=== PATIENT | female | born 1990 | race Caucasian/White ===

== ENCOUNTER 2018-04-10 10:06 | Observation (INO) | payer BC ==
[~2018-04-10] VITALS: Ht 157.5 cm; Wt 86.9 kg
[2018-04-10 10:56] LABS: Protein, Urine Random <5.0 mg/dL (0.0-11.9); Protein/Creat Ratio, Ur Random Unable to Calculate
--- NOTE | 2018-04-10 11:30 | NUR ---
REPORT FROM ELIUD BEST. PT 38 WEEKS, NON REACTIVE NST IN OFFICE, US JUST FINISHED, BPP 4/10, NO BREATHING, NO TONE. PT PLANED TO DELIVER IN [place], PT PREFERANCE. WANTS TO DO WHAT IS SAFE FOR BABY. WILL AWAIT LABS TO DETERMINE PLAN. PT AWARE OF WHAT WE ARE LOOKING FOR, PT HAS HX IF HELLP WITH LAST .
--- NOTE | 2018-04-10 11:30 | NUR ---
ASSUMED CARE. LAB IN ROOM, HAS POKED PT 3 TIMES, UNABLE TO GET LAB DRAW. RN WILL START IV AND DRAW OFF START.
--- NOTE | 2018-04-10 12:00 | NUR ---
LABS BACK, ALL MOSTLY NORMAL. IN UNIT, GAVE PT 3 OPTIONS: SHIP TO [place], MONITOR AND REPEAT BPP AT 1700, GO AMA, PT CAN GO TO [place] BY HERSELF. PT CHOSE TO STAY FOR FURTHER MONITORING.
[2018-04-10 12:12] LABS: BASOPHILS ABSOLUTE AUTO 0.01 K/mm3 (0.00-0.23); BASOPHILS PERCENT AUTO 0 % (0-2); EOSINOPHILS ABSOLUTE AUTO 0.03 K/mm3 (0.00-0.68); EOSINOPHILS PERCENT AUTO 0 % (0-6); Hematocrit 35.4 % (33.0-51.0); Hemoglobin 11.3 g/dL (11.5-16.0); IMMATURE GRAN PERCENT AUTO 1 % (0-1); LYMPHOCYTES ABSOLUTE AUTO 1.66 K/mm3 (0.84-5.20); LYMPHOCYTES PERCENT AUTO 19 % (21-46); MONOCYTES ABSOLUTE AUTO 0.47 K/mm3 (0.16-1.47); MONOCYTES PERCENT AUTO 5 % (4-13); Mean Corpuscular HGB 28.8 pg (26.0-34.0); Mean Corpuscular HGB Conc 31.9 g/dL (31.5-36.5); Mean Corpuscular Volume 90 fL (80-100); Mean Platelet Volume 10.5 fL (9.1-12.4); NEUTROPHILS ABSOLUTE AUTO 6.59 K/mm3 (1.96-9.15); NEUTROPHILS PERCENT AUTO 75 % (41-73); Platelet Count 217 K/mm3 (150-400); RDW Coefficient Variation 13.7 % (11.7-14.2); RDW Standard Deviation 44.7 fL (35.1-46.3); Red Blood Cell Count 3.93 M/mm3 (3.80-5.20); White Blood Cell Count 8.86 K/mm3 (4.00-11.30)
[2018-04-10 12:22] LABS: Alanine Aminotransfer (ALT/SGP 15 U/L (12-78); Albumin, Blood 2.8 g/dL (3.4-5.0); Albumin/Globulin Ratio 0.7 (0.8-1.8); Alk Phos 148 U/L (50-136); Anion Gap 7 mmol/L (6-16); Aspartate Aminotrans (AST/SGOT 17 U/L (12-37); Bilirubin, Total 0.2 mg/dL (0.1-1.0); Blood Urea Nitrogen 6 mg/dL (8-24); Bun/Creatinine Ratio 8.3 (12.0-20.0); CO2, Blood 23 mmol/L (21-32); Calcium, Blood 8.3 mg/dL (8.5-10.1); Chloride, Blood 109 mmol/L (98-108); Creatinine, Blood 0.73 mg/dL (0.40-1.00); Globulin, Blood 3.8 g/dL (2.2-4.0); Glomerular Filtration Rate >60 (60-); Glucose, Blood 68 mg/dL (70-99); Potassium, Blood 3.8 mmol/L (3.5-5.5); Sodium, Blood 139 mmol/L (136-145); Total Protein, Blood 6.6 g/dL (6.4-8.2)
--- NOTE | 2018-04-10 14:33 | NUR ---
PT WAS SENT OVER FROM MD OFFICE, AWARE OF VISIT.
[2018-04-10] MEDS ORDERED: LABE100 PO (21:23)
[2018-04-10] MEDS ORDERED: TRAZ50 PO (21:24)
[2018-04-10] MEDS ORDERED: PANT20 PO (21:25)
[2018-04-11 05:52] LABS: BASOPHILS ABSOLUTE AUTO 0.01 K/mm3 (0.00-0.23); BASOPHILS PERCENT AUTO 0 % (0-2); EOSINOPHILS ABSOLUTE AUTO 0.06 K/mm3 (0.00-0.68); EOSINOPHILS PERCENT AUTO 1 % (0-6); Hematocrit 33.3 % (33.0-51.0); Hemoglobin 10.5 g/dL (11.5-16.0); IMMATURE GRAN ABSOLUTE AUTO 0.05 K/mm3 (0.00-0.10); IMMATURE GRAN PERCENT AUTO 1 % (0-1); LYMPHOCYTES ABSOLUTE AUTO 2.02 K/mm3 (0.84-5.20); LYMPHOCYTES PERCENT AUTO 27 % (21-46); MONOCYTES PERCENT AUTO 8 % (4-13); Mean Corpuscular HGB 28.8 pg (26.0-34.0); Mean Corpuscular HGB Conc 31.5 g/dL (31.5-36.5); Mean Corpuscular Volume 91 fL (80-100); Mean Platelet Volume 10.6 fL (9.1-12.4); NEUTROPHILS ABSOLUTE AUTO 4.84 K/mm3 (1.96-9.15); NEUTROPHILS PERCENT AUTO 64 % (41-73); NRBC ABSOLUTE 0.02 K/mm3 (0.00-0.02); NRBC Auto 0.3 /100 WBC (0.0-0.2); Platelet Count 217 K/mm3 (150-400); RDW Coefficient Variation 13.7 % (11.7-14.2); Red Blood Cell Count 3.65 M/mm3 (3.80-5.20); White Blood Cell Count 7.58 K/mm3 (4.00-11.30)
[2018-04-11 06:00] LABS: Alanine Aminotransfer (ALT/SGP 15 U/L (12-78); Albumin, Blood 2.4 g/dL (3.4-5.0); Albumin/Globulin Ratio 0.7 (0.8-1.8); Alk Phos 130 U/L (50-136); Anion Gap 8 mmol/L (6-16); Aspartate Aminotrans (AST/SGOT 17 U/L (12-37); Bilirubin, Total 0.3 mg/dL (0.1-1.0); Blood Urea Nitrogen 7 mg/dL (8-24); CO2, Blood 22 mmol/L (21-32); Calcium, Blood 8.2 mg/dL (8.5-10.1); Chloride, Blood 109 mmol/L (98-108); Globulin, Blood 3.4 g/dL (2.2-4.0); Glomerular Filtration Rate >60 (60-); Glucose, Blood 70 mg/dL (70-99); Potassium, Blood 3.9 mmol/L (3.5-5.5); Sodium, Blood 139 mmol/L (136-145); Total Protein, Blood 5.8 g/dL (6.4-8.2)
[2018-04-11 06:16] LABS: Creatinine, Urine Random 64.6 mg/dL (27.00-270.00); Protein/Creat Ratio, Ur Random 0.1
== END 2018-04-11 13:20 | disposition home or self-care (01) ==
LOC: OBS 10:06 → BC 10:06 → OBS 18:35 → BC 18:35
PROVIDERS: ADMIT Obstetrics & Gynecology
DX: O36.8130 Decreased fetal movements, third trimester, not applicable or unspecified (principal); O14.03 Mild to moderate pre-eclampsia, third trimester; O99.89 Other specified diseases and conditions complicating pregnancy, childbirth and the puerperium; R03.0 Elevated blood-pressure reading, without diagnosis of hypertension; Z3A.36 36 weeks gestation of pregnancy
CPT/HCPCS: 36415; 36416; 59025; 76819; 80053; 82570; 84156; 85025; C9113; G0378; J7120

== ENCOUNTER → 2018-04-10 | Outpatient (CLI) | payer BC ==
[~2018-04-10] MED LIST: IBUP800 PO; LABE100 PO; ONDA4 PO; PANT20 PO; Percocet 5-3251 EACH PO; TRAZ50 PO
== END | disposition home or self-care (01) ==
LOC: LAB 11:01 → LAB SHORT 11:01
DX: O09.93 Supervision of high risk pregnancy, unspecified, third trimester (principal); Z3A.36 36 weeks gestation of pregnancy
CPT/HCPCS: 87081; 87653

== ENCOUNTER 2018-04-13 16:24 | Inpatient (IN) | payer BC ==
[~2018-04-13] VITALS: Ht 154.9 cm; Wt 86.0 kg
[~2018-04-13 16:24] MED LIST changes: -IBUP800 PO; -ONDA4 PO; -Percocet 5-3251 EACH PO
[2018-04-13 17:18] LABS: BASOPHILS ABSOLUTE AUTO 0.01 K/mm3 (0.00-0.23); BASOPHILS PERCENT AUTO 0 % (0-2); EOSINOPHILS ABSOLUTE AUTO 0.01 K/mm3 (0.00-0.68); EOSINOPHILS PERCENT AUTO 0 % (0-6); Hematocrit 35.2 % (33.0-51.0); Hemoglobin 11.2 g/dL (11.5-16.0); IMMATURE GRAN ABSOLUTE AUTO 0.06 K/mm3 (0.00-0.10); IMMATURE GRAN PERCENT AUTO 1 % (0-1); LYMPHOCYTES ABSOLUTE AUTO 1.59 K/mm3 (0.84-5.20); LYMPHOCYTES PERCENT AUTO 19 % (21-46); MONOCYTES ABSOLUTE AUTO 0.46 K/mm3 (0.16-1.47); MONOCYTES PERCENT AUTO 5 % (4-13); Mean Corpuscular HGB 28.5 pg (26.0-34.0); Mean Corpuscular HGB Conc 31.8 g/dL (31.5-36.5); Mean Corpuscular Volume 90 fL (80-100); Mean Platelet Volume 10.4 fL (9.1-12.4); NEUTROPHILS ABSOLUTE AUTO 6.33 K/mm3 (1.96-9.15); NEUTROPHILS PERCENT AUTO 75 % (41-73); Platelet Count 212 K/mm3 (150-400); RDW Coefficient Variation 13.7 % (11.7-14.2); RDW Standard Deviation 44.8 fL (35.1-46.3); Red Blood Cell Count 3.93 M/mm3 (3.80-5.20); White Blood Cell Count 8.46 K/mm3 (4.00-11.30)
[2018-04-13 17:32] LABS: Alanine Aminotransfer (ALT/SGP 21 U/L (12-78); Albumin, Blood 2.9 g/dL (3.4-5.0); Albumin/Globulin Ratio 0.8 (0.8-1.8); Alk Phos 143 U/L (50-136); Anion Gap 9 mmol/L (6-16); Aspartate Aminotrans (AST/SGOT 16 U/L (12-37); Bilirubin, Total 0.3 mg/dL (0.1-1.0); Blood Urea Nitrogen 7 mg/dL (8-24); CO2, Blood 21 mmol/L (21-32); Calcium, Blood 8.6 mg/dL (8.5-10.1); Chloride, Blood 107 mmol/L (98-108); Globulin, Blood 3.8 g/dL (2.2-4.0); Glomerular Filtration Rate >60 (60-); Glucose, Blood 61 mg/dL (70-99); Potassium, Blood 3.8 mmol/L (3.5-5.5); Sodium, Blood 137 mmol/L (136-145); Total Protein, Blood 6.7 g/dL (6.4-8.2)
--- NOTE | 2018-04-13 18:28 | NUR ---
04/13/18 182 Silke Lucero 1816 DELIVERY VIABLE FEMALE INFANT WEIGHT 5# 13 OZ, HEAD 13..5, CHEST 12, LENGTH 19.5 INCHES, APGARS 7/7, UMBILICAL CORD SEGMENT COLLECTED GIVEN TO RT FOR CORD GASES, UMBILICAL CORD BLOOD COLLECTED GIVEN TO Good OROZCO RN,
[2018-04-13 18:37] LABS: PCO2 Cord - Arterial 47.5 mmHg (40-50); PO2 Cord - Arterial 14.3 mmHg (16-20); pH Cord - Arterial 7.34 (7.28-7.35)
[2018-04-13 18:38] LABS: PCO2 Cord - Venous 41.1 mmHg (40-50); PO2 Cord - Venous 23.7 mmHg (28-32); pH Umbilical Cord - Venous 7.36 (7.26-7.35)
--- NOTE | 2018-04-13 19:00 | NUR ---
REPORT TO JEREMY YAN RN
[2018-04-14 05:58] LABS: Hematocrit 30.8 % (33.0-51.0); Hemoglobin 9.9 g/dL (11.5-16.0); Mean Corpuscular HGB 28.2 pg (26.0-34.0); Mean Corpuscular HGB Conc 32.1 g/dL (31.5-36.5); Mean Corpuscular Volume 88 fL (80-100); Mean Platelet Volume 10.9 fL (9.1-12.4); Platelet Count 205 K/mm3 (150-400); RDW Coefficient Variation 13.6 % (11.7-14.2); RDW Standard Deviation 43.8 fL (35.1-46.3); Red Blood Cell Count 3.51 M/mm3 (3.80-5.20); White Blood Cell Count 12.45 K/mm3 (4.00-11.30)
--- NOTE | 2018-04-14 17:32 | NUR ---
pt states she was feeling "high" earlier from percocet and now states she just feels lightheaded. bp elevated not time for labatolol asked family and friends who had been in room all day to leave for awhile and let her rest. pt now sleeping bp back down and pt states feeling better now
[2018-04-15 05:51] LABS: BASOPHILS ABSOLUTE AUTO 0.01 K/mm3 (0.00-0.23); BASOPHILS PERCENT AUTO 0 % (0-2); EOSINOPHILS ABSOLUTE AUTO 0.02 K/mm3 (0.00-0.68); EOSINOPHILS PERCENT AUTO 0 % (0-6); Hematocrit 30.4 % (33.0-51.0); Hemoglobin 9.6 g/dL (11.5-16.0); IMMATURE GRAN ABSOLUTE AUTO 0.08 K/mm3 (0.00-0.10); IMMATURE GRAN PERCENT AUTO 1 % (0-1); LYMPHOCYTES ABSOLUTE AUTO 2.18 K/mm3 (0.84-5.20); LYMPHOCYTES PERCENT AUTO 25 % (21-46); MONOCYTES ABSOLUTE AUTO 0.51 K/mm3 (0.16-1.47); MONOCYTES PERCENT AUTO 6 % (4-13); Mean Corpuscular HGB 28.7 pg (26.0-34.0); Mean Corpuscular HGB Conc 31.6 g/dL (31.5-36.5); Mean Corpuscular Volume 91 fL (80-100); Mean Platelet Volume 10.1 fL (9.1-12.4); NEUTROPHILS PERCENT AUTO 68 % (41-73); Platelet Count 173 K/mm3 (150-400); RDW Coefficient Variation 14.2 % (11.7-14.2); RDW Standard Deviation 47.1 fL (35.1-46.3); Red Blood Cell Count 3.35 M/mm3 (3.80-5.20)
[2018-04-15 06:17] LABS: Alanine Aminotransfer (ALT/SGP 14 U/L (12-78); Albumin, Blood 2.4 g/dL (3.4-5.0); Albumin/Globulin Ratio 0.7 (0.8-1.8); Alk Phos 103 U/L (50-136); Anion Gap 7 mmol/L (6-16); Aspartate Aminotrans (AST/SGOT 14 U/L (12-37); Bilirubin, Total 0.2 mg/dL (0.1-1.0); Blood Urea Nitrogen 8 mg/dL (8-24); Bun/Creatinine Ratio 11.2 (12.0-20.0); CO2, Blood 25 mmol/L (21-32); Calcium, Blood 7.9 mg/dL (8.5-10.1); Chloride, Blood 108 mmol/L (98-108); Creatinine, Blood 0.72 mg/dL (0.40-1.00); Globulin, Blood 3.3 g/dL (2.2-4.0); Glomerular Filtration Rate >60 (60-); Glucose, Blood 71 mg/dL (70-99); Potassium, Blood 3.6 mmol/L (3.5-5.5); Sodium, Blood 140 mmol/L (136-145); Total Protein, Blood 5.7 g/dL (6.4-8.2)
--- NOTE | 2018-04-15 09:15 | NUR ---
Pt c/o continuing nausea w/no relief with earlier zofran dose. MD notified and will give additional dose. Pt is getting up to shower to see if it makes her feel better. She is also complaining of hot/cold flashes and "black outs". VSS, labs stable. Pt will call when out of shower for assitance w/binder and pain medication.
--- NOTE | 2018-04-15 10:15 | NUR ---
Pt out of shower, back in bed lying right lateral. Pt states "I feel 10 times worse than I did before". States nausea is unresolved and she is continuing to have black out periods. RN inquired if pt remembered receiving earlier stool softener or being in the shower and pt states she does remember. When asked if this has ever happened to her before she states "only when I was in the hospital before" "I don't remember even seeing my baby today" "he (SO) thinks I'm just tired". RN agreed that it could be exhaustion. Pt declined pain medication and phenegran at this time. Will call when awake or for other needs.
--- NOTE | 2018-04-15 11:33 | NUR ---
Pt sleeping soundly, did not wake when RN entered room.
--- NOTE | 2018-04-15 12:30 | NUR ---
Pt sleeping soundly, SO denies needs at this time.
[2018-04-15] MEDS ORDERED: Percocet 5-3251 EACH PO (14:24)
[2018-04-15] MEDS ORDERED: ONDA4 PO (14:24)
[2018-04-15] MEDS ORDERED: IBUP800 PO (14:24)
--- NOTE | 2018-04-15 16:15 | NUR ---
Went to pt room to do d/c teaching. Pt is very anxious, explains she feels like she has . Reassured pt she has not , checked vs and bp elevated. pt then became even more anxious that she may be possibly having hellp syndrome again. Explains that she feels like she is in her room, but doesn't really understand that she's in her room. She seems to be having a hard time articulating how she feels. Denies headache, pain, blurry vision or spots in vision. 1+-2+ DTR bilaterally, no clonus. Denies epigastric pain. Will monitor bp then notify .
--- NOTE | 2018-04-15 18:33 | NUR ---
Pt resting in bed w/. Reports she feels less anxious and no longer feels like she's not in the room. Denies other complaints. BP continued to be elevated, labatelol given. Pt made aware that she has prn anxiety medication available and sleeping pill if needed.
--- NOTE | 2018-04-15 22:16 | NUR ---
DISCHARGE ORDERS FOR 04/16/18 PATIENT TO DISCHARGE TOMORROW, PROVIDER AWARE
--- NOTE | 2018-04-16 09:26 | NUR ---
Pt reports having same feelings of anxiety as yesterday. Doesn't remember RN talking about pp mental health this morning or her anxiety. PRN ativan given per request. Pt states "in my head I'm having a hard time putting my two lives together. My life here at the hospital with my baby and my life a home with my son". RN suggested that perhaps it would be a good idea to have son come in again and interact with nb and mother prior to her going home and maybe it would help calm her fears and worries, pt and agreed this is a good idea. Pt also reports that her mother had a history of pp anxiety and the pt herself also had it with her soon and took some antianxiety medications post .
--- NOTE | 2018-04-16 15:36 | NUR ---
CONSULT. FAMILY GETTING READY FOR DISCHARGE HOME. BABY IS 36 WEEK GESTATION. MOM HAS BEEN PUMPING TO BRING MILK SUPPLY IN AND IS NOW PUMPING MORE THAN AN OUNCE. BABY IS CURRENTLY ASLEEP IN HER ARMS. 7% WT LOSS TODAY. PARENTS HAVE BEEN OFFERING SOME FORMULA SUPPLEMENTS. INSTRUCT TO CONTINUE WITH BF, OFFER 10-15CC OF EBM VIA SNS AFTER 5 MINUTES AT BREAST, SO SHE GETS MAXIMUM CALORIES WITH LESS ENERGY USE. MOM FEELS SHE IS LATCHING WELL. HAS PPFU VISIT IN 24 HOURS AND WILL RE EVALUATE HER LATCH AT THAT TIME. DENIES QUESTIONS. MOM SEEMS SOMEWHAT WITHDRAWN, DAD MORE TALKATIVE.
--- NOTE | 2018-04-16 15:45 | NUR ---
No acute changes t/o shift. Pt denies additional questions/concerns. Pt d/c'd home in wheelchair to care of family.
== END 2018-04-16 15:45 | disposition home or self-care (01) | DRG 788 ==
LOC: BC 16:24
PROVIDERS: ADMIT Obstetrics & Gynecology
PROC: 10D00Z1 Extraction of Products of Conception, Low, Open Approach (ICD-10-PCS; principal; 2018-04-13 17:15)
DX: O14.14 Severe pre-eclampsia complicating childbirth (principal); O34.211 Maternal care for low transverse scar from previous cesarean delivery; Z3A.36 36 weeks gestation of pregnancy; Z37.0 Single live birth; Z91.040 Latex allergy status; O69.1XX0 Labor and delivery complicated by cord around neck, with compression, not applicable or unspecified
CPT/HCPCS: 36415; 80053; 82803; 85025; 85027; 86850; 86900; 86901; 94660; J0690; J1100; J1885; J2405; J2590; J2765; J3010; J7120

== ENCOUNTER → 2020-10-28 | Outpatient (CLI) | payer BC ==
[~2020-10-28] MED LIST changes: +IBUP800 PO; +ONDA4 PO; +Percocet 5-3251 EACH PO
== END | disposition home or self-care (01) ==
LOC: LAB SHORT 12:34 → LAB 12:34
DX: D28.0 Benign neoplasm of vulva (principal)
CPT/HCPCS: 88305

== ENCOUNTER → 2020-10-28 | Outpatient (CLI) | payer BC | END | disposition home or self-care (01) | LOC: LAB SHORT 16:54 → LAB 16:54 | PROVIDERS: Obstetrics & Gynecology | DX: Z12.4 Encounter for screening for malignant neoplasm of cervix (principal) | CPT/HCPCS: G0123 ==

== ENCOUNTER 2024-01-14 16:38 | Emergency (ER) | payer BC ==
[~2024-01-14] VITALS: Ht 154.9 cm; Wt 60.8 kg
[2024-01-14 17:28] LABS: BASOPHILS ABSOLUTE AUTO 0.01 K/mm3 (0.00-0.23); BASOPHILS PERCENT AUTO 0 % (0-2); EOSINOPHILS ABSOLUTE AUTO 0.03 K/mm3 (0.00-0.68); EOSINOPHILS PERCENT AUTO 0 % (0-6); Hematocrit 37.9 % (33.0-51.0); IMMATURE GRAN ABSOLUTE AUTO 0.01 K/mm3 (0.00-0.10); IMMATURE GRAN PERCENT AUTO 0 % (0-1); LYMPHOCYTES ABSOLUTE AUTO 2.33 K/mm3 (0.84-5.20); LYMPHOCYTES PERCENT AUTO 33 % (21-46); MONOCYTES ABSOLUTE AUTO 0.47 K/mm3 (0.16-1.47); MONOCYTES PERCENT AUTO 7 % (4-13); Mean Corpuscular HGB 31.3 pg (26.0-34.0); Mean Corpuscular HGB Conc 34.3 g/dL (31.5-36.5); Mean Corpuscular Volume 91 fL (80-100); Mean Platelet Volume 9.3 fL (9.1-12.4); NEUTROPHILS ABSOLUTE AUTO 4.24 K/mm3 (1.96-9.15); NEUTROPHILS PERCENT AUTO 60 % (41-73); Platelet Count 307 K/mm3 (150-400); RDW Coefficient Variation 13.9 % (11.7-14.2); Red Blood Cell Count 4.16 M/mm3 (3.80-5.20); White Blood Cell Count 7.09 K/mm3 (4.00-11.30)
[2024-01-14 17:50] LABS: Alanine Aminotransfer (ALT/SGP 14 U/L (12-78); Albumin, Blood 3.5 g/dL (3.4-5.0); Alk Phos 70 U/L (50-136); Anion Gap 11 mmol/L (3-11); Aspartate Aminotrans (AST/SGOT 15 U/L (12-37); Beta HCG, Quantitative, Serum <1 mIU/mL (0-3); Bilirubin, Total 0.6 mg/dL (0.1-1.0); Blood Urea Nitrogen 13 mg/dL (8-24); Bun/Creatinine Ratio 13.4 (12.0-20.0); CO2, Blood 21 mmol/L (21-32); Calcium, Blood 8.7 mg/dL (8.5-10.1); Chloride, Blood 108 mmol/L (98-108); Creatinine, Blood 0.97 mg/dL (0.40-1.00); Globulin, Blood 3.6 g/dL (2.2-4.0); Glomerular Filtration Rate 80 (60-); Glucose, Blood 84 mg/dL (70-99); Potassium, Blood 3.8 mmol/L (3.5-5.5); Sodium, Blood 136 mmol/L (136-145); Total Protein, Blood 7.1 g/dL (6.4-8.2)
[2024-01-14 19:38] VITALS: BP 151/108
== END 2024-01-14 19:51 | disposition home or self-care (01) ==
LOC: ER 16:38
PROVIDERS: Physician Assistant
DX: Z79.899 Other long term (current) drug therapy (principal); Z91.040 Latex allergy status
CPT/HCPCS: 76830; 76856; 80053; 84702; 84703; 85025; 99284-25

== ENCOUNTER 2024-05-17 11:19 | Day surgery (SDC) | payer BC ==
[2024-05-17] VITALS (7 sets, daily range): BP systolic 93–147; BP diastolic 46–98
[~2024-05-17] VITALS: Ht 154.9 cm; Wt 62.6 kg
[~2024-05-17 11:19] MED LIST changes: +CeFAZolin Sodium 2,000 MG in NS 100 ML IV SCH; +Lactated Ringer's 1,000 ML IV SCH; +METF500 PO; +OZEMPIC0.25 MG/02 SQ
[2024-05-17] MEDS ORDERED: CeFAZolin Sodium 2,000 MG VIAL ONE (11:32)
[2024-05-17] MEDS ORDERED: Rocuronium Bromide 10 MG/ML 5ML Injection IV ONE ×2 (11:43)
[2024-05-17] MEDS ORDERED: FentaNYL Citrate 50 MCG/ML 5 ML Injection ONE ×3 (11:43→13:30)
[2024-05-17] MEDS ORDERED: Dexamethasone Sod Phos 10 MG/ML 1ML VIAL ONE (11:44)
[2024-05-17] MEDS ORDERED: Ketorolac Tromethamine 30mg Vial ONE (11:44)
[2024-05-17] MEDS ORDERED: Ondansetron HCl 2 MG / ML 2ML Vial ONE (11:44)
--- NOTE | 2024-05-17 11:58 | NUR ---
Ambulatory in Day Surgery History, Chart, Medications and Allergies reviewed before start of procedure. Pre-Op teaching done. Pt verbalizes understanding. Patient States Post-Procedure ride home has been arranged.
[2024-05-17] MEDS ORDERED: propofoL 20 ML IV ONE ×7 (12:02→13:59)
[2024-05-17] MEDS ORDERED: Bupivacaine 0.5% W/EPI 1:200000 SDV 30 ML Vial ONE (12:36)
[2024-05-17] MEDS ORDERED: Labetalol HCL 5 MG/ML 4ML Injection (Single Dose) ONE (13:27)
[2024-05-17] MEDS ORDERED: HydrALAZINE HCl 20 MG / ML 1ML Vial ONE (13:37)
[2024-05-17] MEDS ORDERED: Sugammadex Sodium 200 MG/2ML SDV (100 MG/ML) ONE (14:02)
[2024-05-17] MEDS ORDERED: OxyCODONE HCL 5 MG TAB PO PRN (14:45)
[2024-05-17] MEDS ORDERED: FLU VACC TS2024-25(6MOS UP)/PF 45 MCG/0.5 ML SYRINGE IM PRN (14:45)
[2024-05-17] MEDS ORDERED: Simethicone 80 MG Chew PO PRN (14:45)
[2024-05-17] MEDS ORDERED: Ondansetron HCl 2 MG / ML 2ML Vial IV PRN (14:45)
[2024-05-17] MEDS ORDERED: Acetaminophen 325 MG TABLET PO PRN (14:45)
[2024-05-17] MEDS ORDERED: FentaNYL Citrate 50 MCG/ML 2 ML Injection IV PRN (14:45)
[2024-05-17] MEDS ORDERED: Lactated Ringer's 1,000 ML IV SCH (14:50)
[2024-05-17] MEDS ORDERED: Ibuprofen 400 MG Tab PO PRN (14:50)
[2024-05-17] MEDS ORDERED: HYDROcodone 5-APAP 325 TAB PO PRN (14:50)
[2024-05-17 17:12] LABS: BASOPHILS ABSOLUTE AUTO 0.01 K/mm3 (0.00-0.23); BASOPHILS PERCENT AUTO 0 % (0-2); EOSINOPHILS PERCENT AUTO 0 % (0-6); Hematocrit 35.6 % (33.0-51.0); Hemoglobin 11.9 g/dL (11.5-16.0); IMMATURE GRAN ABSOLUTE AUTO 0.05 K/mm3 (0.00-0.10); IMMATURE GRAN PERCENT AUTO 0 % (0-1); LYMPHOCYTES ABSOLUTE AUTO 0.94 K/mm3 (0.84-5.20); LYMPHOCYTES PERCENT AUTO 8 % (21-46); MONOCYTES ABSOLUTE AUTO 0.13 K/mm3 (0.16-1.47); MONOCYTES PERCENT AUTO 1 % (4-13); Mean Corpuscular HGB 32.7 pg (26.0-34.0); Mean Corpuscular HGB Conc 33.4 g/dL (31.5-36.5); Mean Corpuscular Volume 98 fL (80-100); Mean Platelet Volume 9.5 fL (9.1-12.4); NEUTROPHILS ABSOLUTE AUTO 10.65 K/mm3 (1.96-9.15); NEUTROPHILS PERCENT AUTO 90 % (41-73); Platelet Count 257 K/mm3 (150-400); RDW Coefficient Variation 13.3 % (11.7-14.2); RDW Standard Deviation 47.9 fL (35.1-46.3); Red Blood Cell Count 3.64 M/mm3 (3.80-5.20); White Blood Cell Count 11.78 K/mm3 (4.00-11.30)
[2024-05-17] MEDS ORDERED: Ketorolac Tromethamine 30mg Vial IV SCH (18:00)
--- NOTE | 2024-05-17 19:55 | NUR ---
POST OP NOTE/ SHIFT SUMMARY PT IS ALERT AND RESPONSIVE, AMBULATING INDEPENDENTLY. PT REPORTS NO PAIN, NAUSEA TREATED W/ MEDS PER EMAR. VSS. PT IS HAVING MODERATE VAGINAL BLEEDING, NOT SOAKING PADS. TOLERATING REG DIET AND PO FLUIDS. DRESSINGS TO ABD C/D/I. PT'S SPOUSE FILLED WRITTEN PRESCRIPTIONS, COPY IN CHART. PLAN TO DC TONIGHT. CALL LIGHT IN REACH.
[2024-05-17] MEDS ORDERED: HYDR1TAB94 PO (20:18)
[2024-05-17] MEDS ORDERED: MOTRIN IB200 MG PO (20:19)
--- NOTE | 2024-05-17 21:46 | NUR ---
DISCHARGE SUMMARY PT D/C HOME AT 2057 TODAY VIA WC TO PRIVATE CAR. ATTENTIVE WITH CARE. IV REMOVED, CATH INTACT. ABDIRAHMAN PO, MEDICATED X 1 FOR NAUSEA, DENIES NAUSEA AT D/C. IND IN ROOM. PAIN MANAGED PER EMAR. SCANT VAGINAL BLEEDING. VOIDING WITHOUT DIFFICULTY. DC INSTRUCTIONS PROVIDED, PT VERBALIZED UNDERSTANDING. PERSONAL BELONGINGS SENT HOME WITH PATIENT AND SPOUSE. PT DENIES CONCERNS OR NEEDS. ENCOURAGED TO CONTACT PROVIDER OR UNIT IF CONCERNS ARISE.
[2024-05-18] MEDS ORDERED: Ibuprofen 400 MG Tab PO PRN (12:00)
== END 2024-05-17 20:58 | disposition home or self-care (01) ==
LOC: ORSCMMR 11:19 → ORD 12:30 → ORSCMMR 12:30 → SURS 15:20 → ORSCMMR 20:58
PROVIDERS: Obstetrics & Gynecology
PROC: 0UT7FZZ Resection of Bilateral Fallopian Tubes, Via Natural or Artificial Opening With Percutaneous Endoscopic Assistance (ICD-10-PCS; principal; 2024-05-17 12:30)
PROC: 0UT9FZZ Resection of Uterus, Via Natural or Artificial Opening With Percutaneous Endoscopic Assistance (ICD-10-PCS; principal; 2024-05-17 12:30)
DX: N93.8 Other specified abnormal uterine and vaginal bleeding (principal); N94.6 Dysmenorrhea, unspecified; N80.03 Adenomyosis of the uterus; R10.2 Pelvic and perineal pain; E11.9 Type 2 diabetes mellitus without complications; I10 Essential (primary) hypertension; Z79.84 Long term (current) use of oral hypoglycemic drugs; Z79.85 Long-term (current) use of injectable non-insulin antidiabetic drugs; Z79.899 Other long term (current) drug therapy
CPT/HCPCS: 36415; 85025; 88307; J0360; J0690; J1100; J1885; J2405; J2704; J3010; J7120

== ENCOUNTER 2025-01-24 10:26 | Day surgery (SDC) | payer BC ==
[~2025-01-24] VITALS: Ht 154.9 cm; Wt 59.4 kg
[~2025-01-24 10:26] MED LIST changes: -CeFAZolin Sodium 2,000 MG in NS 100 ML IV SCH; +HYDR1TAB94 PO; -Lactated Ringer's 1,000 ML IV SCH; +MOTRIN IB200 MG PO
[2025-01-24] MEDS ORDERED: Metoprolol Succ25 MG PO (11:01)
[2025-01-24] MEDS ORDERED: IBUP200 PO (11:02)
[2025-01-24] MEDS ORDERED: FentaNYL Citrate 50 MCG/ML 2 ML Injection ONE (12:42)
[2025-01-24] MEDS ORDERED: Dexamethasone Sod Phos 10 MG/ML 1ML VIAL ONE (12:48)
[2025-01-24] MEDS ORDERED: Ondansetron HCl 2 MG / ML 2ML Vial ONE (12:48)
[2025-01-24 13:42] VITALS: BP 116/81
--- NOTE | 2025-01-24 14:17 | NUR ---
01/24/25 1417 Bucky Yen PT DENIES PAIN AND NAUSEA. PT AGREEABLE TO D/C HOME WITH EVELINE.
== END 2025-01-24 14:15 | disposition home or self-care (01) ==
LOC: ORSCSDS 10:26
PROVIDERS: Obstetrics & Gynecology
PROC: 0UBG7ZX Excision of Vagina, Via Natural or Artificial Opening, Diagnostic (ICD-10-PCS; principal; 2025-01-24 12:00)
DX: N84.2 Polyp of vagina (principal); N89.8 Other specified noninflammatory disorders of vagina; I10 Essential (primary) hypertension; E11.9 Type 2 diabetes mellitus without complications; Z79.84 Long term (current) use of oral hypoglycemic drugs; Z79.899 Other long term (current) drug therapy
CPT/HCPCS: 82947; 88305; J1100; J2405; J2704; J3010; J7120